=== PATIENT | female | born 1985 | race Caucasian/White ===

== ENCOUNTER 2017-02-17 14:20 | Emergency (ER) | payer MEDICAID, OTHER ==
[2017-02-17] MEDS: ACETAMINOPHEN 500 MG TAB PO (16:48)
[2017-02-17] MEDS: IBUPROFEN 600 MG TAB PO (16:48)
== END 2017-02-17 17:12 | disposition home or self-care (01) ==
LOC: FTE 14:20
DX: R05 Cough (principal); R50.9 Fever, unspecified; J02.9 Acute pharyngitis, unspecified; R09.81 Nasal congestion; R51 Headache; M25.50 Pain in unspecified joint
CPT/HCPCS: 99284; Z7502

== ENCOUNTER 2017-11-11 17:20 | Emergency (ER) | payer MEDICAID | END 2017-11-11 21:04 | disposition home or self-care (01) | LOC: FTE 17:20 | DX: N76.0 Acute vaginitis (principal) | CPT/HCPCS: 99283; Z7502 ==

== ENCOUNTER 2018-02-10 07:23 | Emergency (ER) | payer MEDICAID ==
[2018-02-10] MEDS: ONDANSETRON (ODT) 4 MG TAB ODT (07:42)
[2018-02-10] MEDS: ACETAMINOPHEN 500 MG TAB PO (07:42)
== END 2018-02-10 07:46 | disposition home or self-care (01) ==
LOC: FTE 07:23
DX: R11.2 Nausea with vomiting, unspecified (principal); R10.84 Generalized abdominal pain
CPT/HCPCS: 99283; Z7502

== ENCOUNTER 2018-02-16 11:45 | Emergency (ER) | payer MEDICAID | END 2018-02-16 13:08 | disposition home or self-care (01) | LOC: FTE 11:45 | DX: K59.1 Functional diarrhea (principal) | CPT/HCPCS: 81025; 99282 ==

== ENCOUNTER 2018-04-26 09:10 | Emergency (ER) | payer MEDICAID | END 2018-04-26 10:53 | disposition home or self-care (01) | LOC: FTE 09:10 | DX: N76.0 Acute vaginitis (principal) | CPT/HCPCS: 99283; Z7502 ==

== ENCOUNTER 2018-06-15 04:25 | Emergency (ER) | payer MEDICAID ==
[2018-06-15] MEDS: LIDOCAINE 1% (MDV) 20 ML INJ SC (08:13)
[2018-06-15] MEDS: CEFTRIAXONE 1 GM INJ IM (08:15)
[2018-06-15] MEDS: ACETAMINOPHEN 500 MG TAB PO (08:16)
[2018-06-15] MEDS: HYDROCODONE/APAP (10/325) TAB PO (10:43)
[2018-06-15] MEDS: TRIMETHOPRIM/SULFAMETHOX (DS) TAB PO (10:44)
[2018-06-15] MEDS: ONDANSETRON (ODT) 4 MG TAB ODT (10:44)
== END 2018-06-15 10:52 | disposition home or self-care (01) ==
LOC: FTE 04:25
DX: L02.211 Cutaneous abscess of abdominal wall (principal)
CPT/HCPCS: 10060; 96372; 99284-25

== ENCOUNTER 2018-06-17 06:49 | Emergency (ER) | payer MEDICAID | END 2018-06-17 07:27 | disposition home or self-care (01) | LOC: FTE 06:49 | DX: Z48.01 Encounter for change or removal of surgical wound dressing (principal) | CPT/HCPCS: 99281; Z7502 ==

== ENCOUNTER 2018-06-19 05:50 | Emergency (ER) | payer MEDICAID | END 2018-06-19 06:56 | disposition home or self-care (01) | LOC: FTE 05:50 | DX: L02.211 Cutaneous abscess of abdominal wall (principal) | CPT/HCPCS: 99281; Z7502 ==